=== PATIENT | male | born 1990 | race African-American/Black ===

== ENCOUNTER 2025-05-26 00:34 | Emergency (ER) | payer MEDICAID ==
[~2025-05-26] VITALS: Ht 182.9 cm; Wt 93.0 kg
[2025-05-26 00:52] VITALS: O2SAT 99
[2025-05-26] MEDS: SODIUM CHLORIDE 0.9% 1,000 ML IV ONE ×3 (01:00→04:21)
[2025-05-26 01:59] LABS: BASOPHILS % 0.2 % (0.0-2.0); EOSINOPHILS % 0.3 % (0.0-5.0); HEMATOCRIT. 56.3 % (42.0-52.0); HEMOGLOBIN. 18.7 g/dL (14.0-18.0); LYMPHOCYTES % 37.8 % (20.0-50.0); MEAN PLATELET VOLUME 9.4 fl (7.4-10.4); MONOCYTES % 16.6 % (2.0-8.0); NEUTROPHILS % 45.1 % (40.0-76.0); PLATELET 274 x1000/uL (130-400); RED BLOOD CELL COUNT 6.61 mill/uL (4.7-6.1); RED CELL DISTRIBUTION WIDTH 12.9 % (11.6-14.6)
[2025-05-26 02:08] LABS: CREATININE 1.7 mg/dL (0.6-1.3)
[2025-05-26 02:09] LABS: ETHANOL BLOOD < 10 mg/dL (<10); UREA NITROGEN BLOOD 32 mg/dL (9-23)
[2025-05-26 02:10] LABS: ASPARTATE AMINOTRANSFERASE 42 IU/L (<34); BILIRUBIN DIRECT 1.3 mg/dL (<=3.0)
[2025-05-26 02:11] LABS: BILIRUBIN TOTAL 2.5 mg/dL (0.1-1.0); PROTEIN TOTAL 9.1 g/dL (6.0-8.3)
[2025-05-26] MEDS: KETOROLAC 30MG/ML VIAL IV STA (02:21)
[2025-05-26] MEDS: ONDANSETRON HCL 4MG/2ML INJ IV STA (02:22)
[2025-05-26 02:28] LABS: INR 1.1
[2025-05-26 06:53] VITALS: BP 174/97; PULSE 86; RESP 18; TEMP 36.9; O2SAT 99
[2025-05-26] MEDS ORDERED: ACET-2708 MT (06:53)
[2025-05-26] MEDS ORDERED: POTA-204 MT (06:53)
[2025-05-26] MEDS ORDERED: ONDA4TAB50 MT (06:53)
== END 2025-05-26 07:16 | disposition home or self-care (01) ==
LOC: ER 00:34
DX: R10.30 Lower abdominal pain, unspecified (principal); R11.2 Nausea with vomiting, unspecified; R19.7 Diarrhea, unspecified; E87.6 Hypokalemia; N17.9 Acute kidney failure, unspecified; E86.0 Dehydration; R03.0 Elevated blood-pressure reading, without diagnosis of hypertension
CPT/HCPCS: 80076; 80048; 80320; 83690; 85025; 85610; 36415; 74176; 96361; 96374; 96375; 99285; J1885; J2405; J7030; G0480